=== PATIENT | female | born 1970 | race Caucasian/White ===

== ENCOUNTER 2024-08-26 06:37 | Day surgery (SDC) | payer OTHER ==
[~2024-08-26] VITALS: Ht 162.6 cm; Wt 113.4 kg
[2024-08-26] MEDS ORDERED: MEPERIDINE 100 MG INJ. 100 MG/ML VIAL ONE ×2 (07:24→08:44)
[2024-08-26] MEDS ORDERED: MIDAZOLAM HCL 5 MG/5 ML VIAL ONE ×2 (07:24→08:45)
[2024-08-26] MEDS ORDERED: SIMETHICONE 40 MG/0.6 ML ML ONE ×2 (07:24→08:45)
[2024-08-26 09:17] VITALS: O2SAT 99
[2024-08-26 13:32] VITALS: BP_SYST 97; PULSE 53; RESP 16
== END 2024-08-26 10:25 | disposition home or self-care (01) ==
LOC: SDS 06:37 → SMU 06:38 → SDS 10:25
PROVIDERS: ATTEND Internal Medicine
DX: K59.00 Constipation, unspecified (principal); K63.89 Other specified diseases of intestine; K63.5 Polyp of colon; K64.4 Residual hemorrhoidal skin tags; K64.8 Other hemorrhoids; K21.9 Gastro-esophageal reflux disease without esophagitis; Z98.891 History of uterine scar from previous surgery; Z90.710 Acquired absence of both cervix and uterus
CPT/HCPCS: 45380; 99152; 88305; 99153; G0378; J2250; J2175